=== PATIENT | male | born 1955 | race Caucasian/White ===

== ENCOUNTER 2021-01-30 13:11 | Inpatient (IN) | payer MEDICARE, MEDICAID ==
[~2021-01-30] VITALS: Ht 182.9 cm; Wt 69.5 kg
[2021-01-30] MEDS ORDERED: LEVETIRACETAM 1,000 MG in SODIUM CHLORIDE 0.9% 100 ML IV ONE (13:30)
--- NOTE | 2021-01-30 13:43 | NUR ---
LATE ENTRY- PT BR[facility] WITH CHIEF COMPLAINT OF STROKE LIEK SYMPTOMS. PER EMS REPORT PT LAST BASELINE AT 1230 WITH STAFF REPORTED PT BECAME NONVERBAL, RIGHT SIDED FLACCID, SEIZURE ACTIVITY. EMS ADMINISTERED 5 MG VERSED IN & 2.5MG VERSED IV, ALSO REPORTED WAS HIGH FSBS. UPON ARRIVAL CODE NEURO CALLED, LOUIE JENSEN AT BEDSIDE FOR EVAL. DUE TO NONRESPONSIVENESS AND SEIZURE ACTIVITY PT WAS INTUBATED.
[2021-01-30 13:46] LABS: BASOPHILS % (AUTO) 0 % (0-1); EOSINOPHILS % (AUTO) 0 % (1-7); LYMPHOCYTES % (AUTO) 7 % (22-44); MEAN CORPUSCULAR HEMOGLOBIN 29.6 pg (27.5-34.5); MEAN CORPUSCULAR HGB CONC 32.1 g/dL (33.2-36.2); MEAN PLATELET VOLUME 10.4 fL (7.4-10.4); MONOCYTES % (AUTO) 4 % (2-9); NEUTROPHILS % (AUTO) 89 % (42-75); PLATELET COUNT 207 x10^3/uL (130-400); RED BLOOD COUNT 3.22 x10^6/uL (4.38-5.82); RED CELL DISTRIBUTION WIDTH 14.6 % (9.4-14.8)
[2021-01-30] MEDS ORDERED: MIDAZOLAM 1 MG/ML, 2ML IVPush ONE (14:00)
[2021-01-30] MEDS ORDERED: SUCCINYLCHOLINE 20 MG/ML, 10ML IVPush ONE (14:00)
[2021-01-30] MEDS ORDERED: SODIUM CHLORIDE FLUSH 10ML SYR IVF ONE (14:00)
[2021-01-30] MEDS ORDERED: ETOMIDATE 20 MG/10 ML IV ONE (14:00)
[2021-01-30] MEDS ORDERED: SODIUM CHLORIDE 0.9% 1,000 ML IV ONE (14:00)
[2021-01-30 14:03] LABS: ANION GAP 19 mmol/L (5-15); CALCIUM 8.5 mg/dL (8.5-10.1); CHLORIDE 94 mmol/L (98-107); CREATININE 2.79 mg/dL (0.7-1.3)
[2021-01-30] MEDS ORDERED: OMNIPAQUE 350 MG/ML, 100ML BOTTLE ONE (14:15)
[2021-01-30] MEDS ORDERED: SODIUM CHLORIDE 0.9% 1,000ML IVBOLUS ONE (14:30)
[2021-01-30] MEDS ORDERED: PLEASE ENTER ALLERGIES MC SCH (14:30)
--- NOTE | 2021-01-30 14:30 | NUR ---
pt resting in bed. vss.
[2021-01-30 14:32] LABS: ACETONE, SERUM Large (80mg/dL) (Negative)
[2021-01-30] MEDS: PROPOFOL 100 ML IV PRN (14:42)
--- NOTE | 2021-01-30 15:30 | NUR ---
EEG AT BEDSIDE
[2021-01-30] MEDS: SODIUM CHLORIDE 0.9% 1,000 ML IV SCH ×4 (16:00→21:30)
[2021-01-30] MEDS ORDERED: REGULAR INSULIN 100 UNITS in SODIUM CHLORIDE 0.9% 99 ML IV PRN (16:00)
[2021-01-30 16:22] LABS: INTERNATIONAL NORMALIZED RATIO 1.13 (0.93-1.1)
[2021-01-30] MEDS ORDERED: LEVETIRACETAM 500 MG in SODIUM CHLORIDE 0.9% 100 ML IV SCH (16:30)
[2021-01-30] MEDS ORDERED: DEXTROSE 4 GM TAB.CHEW PO PRN (16:30)
[2021-01-30] MEDS ORDERED: MAGNESIUM SULFATE PMX 2GM/50ML 50 ML IV ONE (16:30)
[2021-01-30] MEDS ORDERED: GLUCAGON 1 MG IM PRN (16:30)
--- NOTE | 2021-01-30 16:41 | NUR ---
ULTRASOUND AT BEDSIDE
[2021-01-30] MEDS ORDERED: PHARMACY MAY ADJ FOR RENAL FX MC PRN (17:00)
[2021-01-30] MEDS ORDERED: ONDANSETRON 2MG/ML, 2ML IV PRN (17:00)
[2021-01-30] MEDS ORDERED: ENALAPRILAT 1.25 MG/ML, 2ML IVPush PRN (17:00)
[2021-01-30 17:01] LABS: ANION GAP 12 mmol/L (5-15); CALCIUM 8.2 mg/dL (8.5-10.1); CHLORIDE 98 mmol/L (98-107)
[2021-01-30 17:05] LABS: TROPONIN I < 0.015 ng/mL (0.000-0.045)
[2021-01-30] MEDS ORDERED: MAGNESIUM SULFATE PMX 2GM/50ML 50 ML ONE (17:05)
[2021-01-30] MEDS: REGULAR INSULIN 100 UNITS in SODIUM CHLORIDE 0.9% 99 ML IV PRN (17:38)
[2021-01-30] MEDS ORDERED: LIDOCAINE-MPF 1%, 2ML ENDO PRN (18:00)
[2021-01-30] MEDS ORDERED: PHARMACY MAY ADJ FOR RENAL FX MC SCH (18:00)
[2021-01-30] MEDS ORDERED: LABETALOL 5MG/ML, 20ML IVPush PRN (18:00)
[2021-01-30 18:02] LABS: MICROSCOPIC NOT IND
--- NOTE | 2021-01-30 18:10 | NUR ---
Linens changed, repositioned, pt resting in bed,
--- NOTE | 2021-01-30 18:50 | NUR ---
Report to GERMAN & Edda HARRISON
--- NOTE | 2021-01-30 18:50 | NUR ---
Report from CHRISTY Mckay. This RN to assume care. Patient tolerating ETT and sedation well. Mag almost complete and insulin running at 800u/hr. Next BS to be checked at 1930.
--- NOTE | 2021-01-30 18:55 | NUR ---
Spoke with patient's for update and asked about pcn allergy. Jonathan stated she is unaware of patient's reaction to pcn. Pharmacy to be updated due to Merepenem order.
[2021-01-30] MEDS: LINEZOLID PMX 600MG/300ML 300 ML IV SCH (19:23)
--- NOTE | 2021-01-30 20:15 | NUR ---
FS checked; read HI. Titrated insulin.
[2021-01-30] MEDS: SODIUM CHLORIDE FLUSH 10ML SYR IVF SCH (20:19)
[2021-01-30] MEDS ORDERED: ETOMIDATE 20 MG/10 ML ONE (21:00)
[2021-01-30] MEDS ORDERED: SUCCINYLCHOLINE 20 MG/ML, 10ML ONE (21:00)
[2021-01-30] MEDS ORDERED: PROPOFOL 10 MG/ML, 100ML IV ONE (21:00)
--- NOTE | 2021-01-30 21:30 | NUR ---
FS checked; read HI. Titrated insulin.
[2021-01-30 21:41] LABS: ANION GAP 12 mmol/L (5-15); CALCIUM 8.6 mg/dL (8.5-10.1); CHLORIDE 104 mmol/L (98-107)
[2021-01-30] MEDS: MEROPENEM 1 GM in SODIUM CHLORIDE 0.9% 100 ML IV SCH (21:41)
[2021-01-30 21:46] LABS: CREATININE 2.82 mg/dL (0.7-1.3); TROPONIN I < 0.015 ng/mL (0.000-0.045)
--- NOTE | 2021-01-30 22:30 | NUR ---
Titrated insulin down due to FS value.
--- NOTE | 2021-01-30 23:30 | NUR ---
No insulin titration needed at this time.
--- NOTE | 2021-01-31 00:32 | NUR ---
No insulin titration needed at this time.
[2021-01-31 00:47] LABS: ANION GAP 10 mmol/L (5-15); CALCIUM 8.4 mg/dL (8.5-10.1); CHLORIDE 109 mmol/L (98-107); CREATININE 2.67 mg/dL (0.7-1.3)
[2021-01-31] MEDS ORDERED: SOD250TA2 PO (01:02)
[2021-01-31] MEDS ORDERED: morphine PO (01:02)
[2021-01-31] MEDS ORDERED: TAMS-11 PO (01:02)
[2021-01-31] MEDS ORDERED: BUDE10.2 INH (01:02)
[2021-01-31] MEDS ORDERED: INSU100V8 SQ (01:02)
[2021-01-31] MEDS ORDERED: METO25TA35 PO (01:02)
[2021-01-31] MEDS ORDERED: ACET325T26 PO (01:02)
[2021-01-31] MEDS ORDERED: TRAZ300T2 PO (01:02)
[2021-01-31] MEDS ORDERED: VALP250C59 PO (01:02)
[2021-01-31] MEDS ORDERED: AMLO-150 PO (01:02)
[2021-01-31] MEDS ORDERED: VENL150C6 PO (01:02)
[2021-01-31] MEDS ORDERED: ONDA4TAB7 PO (01:02)
[2021-01-31] MEDS ORDERED: MELA5TAB14 PO (01:02)
[2021-01-31] MEDS ORDERED: OXYC15TA75 PO (01:02)
--- NOTE | 2021-01-31 01:25 | NUR ---
Report given to CHRISTY Garcia. Patient to be transferred to room 544.
[2021-01-31] MEDS: D5%-0.45NACL+KCL 20MEQ 1,000 ML IV SCH ×2 (01:31→10:03)
[2021-01-31] MEDS: PROPOFOL 100 ML IV PRN ×2 (01:56→02:17)
[2021-01-31] MEDS: SODIUM CHLORIDE 0.9% 1,000 ML IV SCH ×6 (02:00→17:30)
[2021-01-31] MEDS: REGULAR INSULIN 100 UNITS in SODIUM CHLORIDE 0.9% 99 ML IV PRN (02:15)
[2021-01-31 04:06] VITALS: BP 99/62
[2021-01-31] MEDS ORDERED: LEVETIRACETAM 1,000 MG in SODIUM CHLORIDE 0.9% 100 ML IV SCH (04:30)
[2021-01-31] MEDS: DEXTROSE 50%, 50ML SYRINGE IVPush PRN ×2 (05:04→17:04)
[2021-01-31] MEDS: MEROPENEM 1 GM in SODIUM CHLORIDE 0.9% 100 ML IV SCH ×4 (05:15→21:46)
[2021-01-31 06:13] LABS: ANION GAP 7 mmol/L (5-15); CHLORIDE 115 mmol/L (98-107)
[2021-01-31 06:25] LABS: CREATININE 2.49 mg/dL (0.7-1.3)
[2021-01-31] MEDS ORDERED: LEVOTHYROXINE 100 MCG INJ IVPush SCH (09:00)
[2021-01-31] MEDS: SODIUM CHLORIDE FLUSH 10ML SYR IVF SCH ×2 (09:00→21:45)
[2021-01-31 10:02] LABS: ANION GAP 8 mmol/L (5-15); CALCIUM 8.9 mg/dL (8.5-10.1); CHLORIDE 111 mmol/L (98-107); CREATININE 2.58 mg/dL (0.7-1.3)
[2021-01-31] MEDS: LINEZOLID PMX 600MG/300ML 300 ML IV SCH ×2 (10:03→18:03)
[2021-01-31] MEDS: PANTOPRAZOLE 40 MG IV IVPush SCH (10:03)
[2021-01-31] MEDS: VALPROATE SODIUM 750 MG in SODIUM CHLORIDE 0.9% 100 ML IV SCH ×2 (10:07→21:45)
[2021-01-31] MEDS ORDERED: LIDOCAINE-MPF 1%, 2ML ENDO PRN (13:30)
[2021-01-31] MEDS ORDERED: FENTANYL PF 100 MCG/2ML IVPush PRN (13:30)
[2021-01-31] MEDS ORDERED: SODIUM CHLORIDE 0.9% 1,000 ML IV SCH (13:30)
[2021-01-31] MEDS ORDERED: PHARMACY MAY ADJ FOR RENAL FX MC SCH (13:30)
[2021-01-31] MEDS: INSULIN GLARGINE 100 UNITS/ML, PEN SQ-INSULIN SCH ×2 (14:19→21:00)
[2021-01-31 20:20] LABS: ANION GAP 5 mmol/L (5-15); CALCIUM 8.1 mg/dL (8.5-10.1); CHLORIDE 114 mmol/L (98-107)
[2021-01-31] MEDS ORDERED: DEXTROSE 10% 1,000 ML IV SCH (22:30)
[2021-02-01 00:50] LABS: ANION GAP 4 mmol/L (5-15); CHLORIDE 113 mmol/L (98-107); CREATININE 2.28 mg/dL (0.7-1.3)
[2021-02-01] MEDS: MEROPENEM 1 GM in SODIUM CHLORIDE 0.9% 100 ML IV SCH (03:52)
[2021-02-01 04:34] LABS: BASOPHILS % (AUTO) 1 % (0-1); EOSINOPHILS % (AUTO) 1 % (1-7); LYMPHOCYTES % (AUTO) 15 % (22-44); MEAN CORPUSCULAR HEMOGLOBIN 29.6 pg (27.5-34.5); MEAN CORPUSCULAR HGB CONC 33.3 g/dL (33.2-36.2); MEAN PLATELET VOLUME 9.1 fL (7.4-10.4); MONOCYTES % (AUTO) 4 % (2-9); NEUTROPHILS % (AUTO) 79 % (42-75); PLATELET COUNT 102 x10^3/uL (130-400); RED BLOOD COUNT 2.64 x10^6/uL (4.38-5.82); RED CELL DISTRIBUTION WIDTH 15.4 % (9.4-14.8)
[2021-02-01 04:44] LABS: ALANINE AMINOTRANSFERASE 16 U/L (12-78); ANION GAP 7 mmol/L (5-15); CALCIUM 7.7 mg/dL (8.5-10.1); CHLORIDE 112 mmol/L (98-107); CREATININE 2.14 mg/dL (0.7-1.3)
[2021-02-01 04:46] LABS: ALKALINE PHOSPHATASE 89 U/L (45-117); BILIRUBIN,TOTAL 0.3 mg/dL (0.2-1.0); TOTAL PROTEIN 5.6 g/dL (6.4-8.2)
[2021-02-01] MEDS ORDERED: DEXTROSE 10% 1,000 ML IV SCH (05:00)
[2021-02-01] MEDS: PANTOPRAZOLE 40 MG IV IVPush SCH (08:45)
[2021-02-01] MEDS: VALPROATE SODIUM 750 MG in SODIUM CHLORIDE 0.9% 100 ML IV SCH ×2 (09:57→22:32)
[2021-02-01] MEDS: SODIUM CHLORIDE FLUSH 10ML SYR IVF SCH ×3 (09:58→22:31)
[2021-02-01] MEDS: POTASSIUM CHLORIDE 20 MEQ PACKET PO SCH ×2 (10:31→17:23)
[2021-02-01 11:51] LABS: ANION GAP 7 mmol/L (5-15); CALCIUM 8.2 mg/dL (8.5-10.1); CHLORIDE 111 mmol/L (98-107)
[2021-02-01] MEDS: CEFTRIAXONE 2 GM in DEXTROSE 5% 50 ML IVPB SCH (14:04)
[2021-02-01] MEDS ORDERED: DEXTROSE 4 GM TAB.CHEW PO PRN (15:30)
[2021-02-01] MEDS ORDERED: DEXTROSE 50%, 50ML SYRINGE IVPush PRN (15:30)
[2021-02-01] MEDS ORDERED: GLUCAGON 1 MG IM PRN (15:30)
[2021-02-01] MEDS: INSULIN LISPRO 100 UNITS/ML, PEN SQ-INSULIN SCH ×2 (17:24→23:30)
[2021-02-01] MEDS ORDERED: LEVOTHYROXINE 100 MCG INJ IVPush SCH (21:00)
[2021-02-01 21:05] LABS: ANION GAP 4 mmol/L (5-15); CALCIUM 8.2 mg/dL (8.5-10.1); CHLORIDE 112 mmol/L (98-107); CREATININE 1.92 mg/dL (0.7-1.3)
[2021-02-01] MEDS: METOPROLOL TARTRATE 25 MG TAB PO SCH (22:31)
[2021-02-01] MEDS: VENLAFAXINE 75MG TABLET PO SCH (22:31)
[2021-02-02 07:23] VITALS: BP 168/67
[2021-02-02 07:39] LABS: BASOPHILS % (AUTO) 1 % (0-1); EOSINOPHILS % (AUTO) 3 % (1-7); LYMPHOCYTES % (AUTO) 14 % (22-44); MEAN CORPUSCULAR HEMOGLOBIN 29.5 pg (27.5-34.5); MEAN CORPUSCULAR HGB CONC 33.1 g/dL (33.2-36.2); MEAN PLATELET VOLUME 9.3 fL (7.4-10.4); MONOCYTES % (AUTO) 6 % (2-9); NEUTROPHILS % (AUTO) 77 % (42-75); PLATELET COUNT 96 x10^3/uL (130-400); RED BLOOD COUNT 2.87 x10^6/uL (4.38-5.82)
[2021-02-02 07:53] LABS: ALANINE AMINOTRANSFERASE 21 U/L (12-78); ALBUMIN 2.4 g/dL (3.4-5.0); ANION GAP 8 mmol/L (5-15); CALCIUM 8.2 mg/dL (8.5-10.1); CHLORIDE 114 mmol/L (98-107)
[2021-02-02 07:55] LABS: ALKALINE PHOSPHATASE 111 U/L (45-117); BILIRUBIN,TOTAL 0.4 mg/dL (0.2-1.0); TOTAL PROTEIN 5.9 g/dL (6.4-8.2)
[2021-02-02] MEDS: PANTOPRAZOLE 40 MG IV IVPush SCH (08:13)
[2021-02-02] MEDS: TAMSULOSIN 0.4 MG CAP.ER.24H PO SCH (08:13)
[2021-02-02] MEDS: VENLAFAXINE 75MG TABLET PO SCH ×2 (08:13→20:44)
[2021-02-02] MEDS: METOPROLOL TARTRATE 25 MG TAB PO SCH ×2 (08:14→20:44)
[2021-02-02] MEDS: AMLODIPINE 10 MG TAB PO SCH (08:14)
[2021-02-02] MEDS: VALPROATE SODIUM 750 MG in SODIUM CHLORIDE 0.9% 100 ML IV SCH ×2 (08:14→20:44)
[2021-02-02] MEDS: SODIUM CHLORIDE FLUSH 10ML SYR IVF SCH ×4 (08:14→21:00)
[2021-02-02] MEDS: LEVOTHYROXINE 100 MCG TABLET PO SCH (08:14)
[2021-02-02] MEDS: INSULIN LISPRO 100 UNITS/ML, PEN SQ-INSULIN SCH ×4 (08:33→21:01)
[2021-02-02] MEDS: CEFTRIAXONE 2 GM in DEXTROSE 5% 50 ML IVPB SCH (12:12)
[2021-02-02 12:32] VITALS: BP 116/82
[2021-02-02 20:30] VITALS: BP 112/67
[2021-02-02] MEDS ORDERED: INSULIN GLARGINE 100 UNITS/ML, PEN SQ-INSULIN SCH (21:00)
[2021-02-03 01:41] VITALS: BP 143/83
[2021-02-03] MEDS: LEVOTHYROXINE 100 MCG TABLET PO SCH (05:26)
[2021-02-03 06:17] VITALS: BP 132/66
[2021-02-03 06:21] LABS: BASOPHILS % (AUTO) 0 % (0-1); EOSINOPHILS % (AUTO) 2 % (1-7); LYMPHOCYTES % (AUTO) 21 % (22-44); MEAN CORPUSCULAR HEMOGLOBIN 30.7 pg (27.5-34.5); MEAN CORPUSCULAR HGB CONC 34.5 g/dL (33.2-36.2); MEAN PLATELET VOLUME 9.6 fL (7.4-10.4); MONOCYTES % (AUTO) 8 % (2-9); NEUTROPHILS % (AUTO) 69 % (42-75); PLATELET COUNT 101 x10^3/uL (130-400); RED BLOOD COUNT 2.85 x10^6/uL (4.38-5.82)
[2021-02-03 06:33] LABS: ANION GAP 5 mmol/L (5-15); CALCIUM 8.4 mg/dL (8.5-10.1); CHLORIDE 111 mmol/L (98-107); CREATININE 1.42 mg/dL (0.7-1.3)
[2021-02-03] MEDS: AMLODIPINE 10 MG TAB PO SCH (07:31)
[2021-02-03] MEDS: METOPROLOL TARTRATE 25 MG TAB PO SCH ×2 (07:31→21:49)
[2021-02-03] MEDS: SODIUM CHLORIDE FLUSH 10ML SYR IVF SCH ×4 (07:31→21:48)
[2021-02-03] MEDS: PANCRELIPASE 24,000 CAPSULE.DR PO SCH ×3 (07:31→16:35)
[2021-02-03] MEDS: TAMSULOSIN 0.4 MG CAP.ER.24H PO SCH (07:31)
[2021-02-03] MEDS: VENLAFAXINE 75MG TABLET PO SCH ×2 (07:41→21:48)
[2021-02-03] MEDS: INSULIN LISPRO 100 UNITS/ML, PEN SQ-INSULIN SCH ×4 (07:42→22:06)
[2021-02-03] MEDS ORDERED: INSULIN GLARGINE 100 UNITS/ML, PEN SQ-INSULIN SCH ×2 (09:00→21:00)
[2021-02-03] MEDS: VALPROATE SODIUM 750 MG in SODIUM CHLORIDE 0.9% 100 ML IV SCH ×2 (09:45→21:48)
[2021-02-03] MEDS ORDERED: CEFTRIAXONE 2 GM in DEXTROSE 5% 50 ML IVPB SCH (12:00)
[2021-02-03] MEDS ORDERED: CEFTRIAXONE 2 GM in SODIUM CHLORIDE 0.9% 50 ML IVPB SCH (12:00)
[2021-02-03 12:40] VITALS: BP 141/80
[2021-02-03 19:55] VITALS: BP 155/88
[2021-02-03] MEDS ORDERED: TEMAZEPAM 15 MG CAPSULE PO PRN (23:00)
[2021-02-04 01:04] VITALS: BP 148/71
[2021-02-04] MEDS: LEVOTHYROXINE 100 MCG TABLET PO SCH (06:19)
[2021-02-04 06:31] VITALS: BP 171/86
[2021-02-04] MEDS ORDERED: CEFDINIR 300 MG CAPSULE PO SCH (07:00)
[2021-02-04] MEDS: INSULIN LISPRO 100 UNITS/ML, PEN SQ-INSULIN SCH ×2 (08:17→11:37)
[2021-02-04] MEDS: TAMSULOSIN 0.4 MG CAP.ER.24H PO SCH (08:18)
[2021-02-04] MEDS: PANCRELIPASE 24,000 CAPSULE.DR PO SCH ×2 (08:18→11:38)
[2021-02-04] MEDS: VENLAFAXINE 75MG TABLET PO SCH (08:18)
[2021-02-04] MEDS: SODIUM CHLORIDE FLUSH 10ML SYR IVF SCH ×2 (08:19)
[2021-02-04] MEDS: AMLODIPINE 10 MG TAB PO SCH (08:20)
[2021-02-04] MEDS ORDERED: DIVA-59 PO (08:45)
[2021-02-04] MEDS ORDERED: CEFD300C37 PO (08:45)
[2021-02-04] MEDS ORDERED: LIPA1CAP61 PO (08:45)
[2021-02-04] MEDS ORDERED: INSU100I13 SQ-INSULIN (08:45)
[2021-02-04] MEDS ORDERED: METO50TA82 PO (08:45)
[2021-02-04] MEDS ORDERED: LEVO100T PO (08:45)
[2021-02-04] MEDS ORDERED: INSU100I11 SQ-INSULIN (08:45)
[2021-02-04] MEDS ORDERED: DIVALPROEX 250 MG TABLET.DR PO SCH (09:00)
[2021-02-04] MEDS ORDERED: METOPROLOL TARTRATE 50 MG TAB PO SCH (09:00)
[2021-02-04] MEDS ORDERED: INSULIN GLARGINE 100 UNITS/ML, PEN SQ-INSULIN SCH (09:00)
[2021-02-04 13:09] VITALS: BP 131/72
== END 2021-02-04 18:36 | DRG 871 ==
LOC: SUATTDRO 14:46 → ED 16:00 → CCU 16:05 → ED 17:06 → 3N 02-01 15:53
PROVIDERS: ADMIT Internal Medicine; ATTEND Internal Medicine
PROC: 5A1945Z Respiratory Ventilation, 24-96 Consecutive Hours (ICD-10-PCS; principal; 2021-01-30)
PROC: 0BH17EZ Insertion of Endotracheal Airway into Trachea, Via Natural or Artificial Opening (ICD-10-PCS; 2021-01-30)
PROC: 4A10X4Z Monitoring of Central Nervous Electrical Activity, External Approach (ICD-10-PCS; 2021-01-30)
PROC: 0T9B70Z Drainage of Bladder with Drainage Device, Via Natural or Artificial Opening (ICD-10-PCS; 2021-01-30)
DX: A41.9 Sepsis, unspecified organism (principal); E11.10 Type 2 diabetes mellitus with ketoacidosis without coma; E11.01 Type 2 diabetes mellitus with hyperosmolarity with coma; I62.03 Nontraumatic chronic subdural hemorrhage; N17.0 Acute kidney failure with tubular necrosis; J96.01 Acute respiratory failure with hypoxia; G93.41 Metabolic encephalopathy; E43 Unspecified severe protein-calorie malnutrition; J18.9 Pneumonia, unspecified organism; E87.1 Hypo-osmolality and hyponatremia; F11.20 Opioid dependence, uncomplicated; G96.08 Other cranial cerebrospinal fluid leak; K86.1 Other chronic pancreatitis; J44.0 Chronic obstructive pulmonary disease with (acute) lower respiratory infection; Z99.11 Dependence on respirator [ventilator] status; G40.901 Epilepsy, unspecified, not intractable, with status epilepticus; F03.90 Unspecified dementia, unspecified severity, without behavioral disturbance, psychotic disturbance, mood disturbance, and anxiety; D64.9 Anemia, unspecified; N40.0 Benign prostatic hyperplasia without lower urinary tract symptoms; G89.29 Other chronic pain; E11.649 Type 2 diabetes mellitus with hypoglycemia without coma; Z20.822 Contact with and (suspected) exposure to COVID-19; D69.6 Thrombocytopenia, unspecified; E03.9 Hypothyroidism, unspecified; I12.9 Hypertensive chronic kidney disease with stage 1 through stage 4 chronic kidney disease, or unspecified chronic kidney disease; E11.22 Type 2 diabetes mellitus with diabetic chronic kidney disease; N18.9 Chronic kidney disease, unspecified; E11.40 Type 2 diabetes mellitus with diabetic neuropathy, unspecified; R13.10 Dysphagia, unspecified; Z79.899 Other long term (current) drug therapy; Z68.20 Body mass index [BMI] 20.0-20.9, adult; Z79.4 Long term (current) use of insulin
CPT/HCPCS: 36415; 36600; 70450; 70496; 70498; 71045; 76700; 80047; 80048; 80053; 80164; 81003; 82010; 82040; 82803; 82947; 82962; 83036; 83735; 84100; 84443; 84478; 84484; 85025; 85610; 85730; 87040; 87070; 87077; 87081; 87086; 87186; 87205; 93005; 93308; 93321; 93325; 94002; 94003; 95819; 96365; 96366; 96375; G0378; J0696; J1953; J2020; J2185; J2704; Q9967; U0005; C9113; J0330; J1815; J3475; J3480; J7030; U0003